=== PATIENT | female | born 1990 | race Caucasian/White ===

== ENCOUNTER 2018-04-06 06:18 | Day surgery (SDC) | payer OTHER, SELFPAY ==
[~2018-04-06] VITALS: Ht 170.2 cm; Wt 85.7 kg
[2018-04-06] MEDS ORDERED: ALBU90OI INH (06:49)
== END 2018-04-06 08:55 | disposition home or self-care (01) ==
LOC: ORSCSDS 06:18
PROVIDERS: Orthopaedic Surgery
PROC: 0JPV0HZ Removal of Contraceptive Device from Upper Extremity Subcutaneous Tissue and Fascia, Open Approach (ICD-10-PCS; principal; 2018-04-06 07:30)
DX: Z30.432 Encounter for removal of intrauterine contraceptive device (principal); J45.909 Unspecified asthma, uncomplicated; Z79.899 Other long term (current) drug therapy
CPT/HCPCS: 88300; J0690; J2250; J3010; J7120